=== PATIENT | female | born 1960 | race African-American/Black ===

== ENCOUNTER 2016-11-17 06:45 | Emergency (ER) | payer OTHER ==
[~2016-11-17] VITALS: Ht 162.6 cm; Wt 78.0 kg
[2016-11-17] MEDS ORDERED: Norco 10mg/325mg tab ORAL ONE (07:15)
--- NOTE | 2016-11-17 07:15 | Emergency Room Report ---
History of Present Illness General Chief Complaint: Pain Source: Patient Present Illness HPI The patient presents with 3 weeks of right knee pain. She may have twisted it. She's has swelling and pain with ambulation. She's been using Yo wrap and then wrapped elastic sleeve from [facility]. The sleeve has been helping more than the Yo wrap. The pain got worse recently. She takes [place] 10/325 for her back and has been using that. In addition she took some Advil a few days ago a couple times. The pain is 8-10/10, aching with swelling and does not radiate. The lateral side is more tender than the medial. 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 There has been clicking when she walks. He denies any cough, shortness of breath or chest pain. There is no rash in that area. There is no numbness side from the foot drop that she usually has. No fever or rash. No dysuria. Allergies: Coded Allergies: No Known Allergies (Unverified , 11/17/16) Patient History Past Medical History: see triage record Social History Narrative disabled Last Menstrual Period: 20 years ago Now: No Reviewed Nursing Documentation: PMH: Agreed, PSxH: Agreed Nursing Documentation-PMH Hx Hypertension: Yes Hx Asthma: No Hx Diabetes: No History Of Psychiatric Problem: No Review of Systems Constitutional: Denies: fever Respiratory: Reports: see HPI Cardiovascular: Reports: see HPI Gastrointestinal: Denies: nausea, vomiting Musculoskeletal: Reports: see HPI Skin: Reports: see HPI Neurological: Reports: see HPI All Other Systems: negative except mentioned in HPI Physical Exam Vital Signs Date Time Temp Pulse Resp B/P Pulse Ox O2 Delivery O2 Flow Rate FiO2 11/17/16 06:51 98.4 75 14 132/91 100 Sp02 EP Interpretation: reviewed, normal General Appearance: well appearing, no apparent distress Head: normocephalic, atraumatic Eyes: bilateral eye normal inspection ENT: hearing grossly normal, normal voice, moist mucus membranes Neck: full range of motion, supple Respiratory: no respiratory distress, speaking full sentences Cardiovascular #2: 2+ radial (L), 2+ dorsalis pedis (R) Gastrointestinal: normal inspection Musculoskeletal: digits/nails normal, no calf tenderness, swelling, other - Obvious swelling of the right knee with effusion. Range of motion is fairly good except with flexion. There is pain with full extension. There is no gross sign and also there is lateral ligament laxity. She also has meniscal tenderness bilaterally hour Apley's compression is negative. Negative drawer sign. Neurologic: alert, sensory intact, speech normal, motor weakness - foot drop right, grossly normal - except for foot drop R Psychiatric: mood/affect normal Skin: no rash Medical Decision Making Diagnostic Impression: Primary Impression: Acute cartilage injury of knee Qualified Codes: S89.91XA - Unspecified injury of right lower leg, initial encounter ER Course The patient presents with minimal traumatic right knee effusion and pain. Exam is consistent with cartilage injury however an x-ray will be obtained to exclude a fracture. Also she'll be given Motrin and [place]. Immobilizer applied by tech. Position and tension excellent with improvement. Neurovasc normal with exclusion of foot drop as checked by me. Patient stable for outpatient observation and treatment. Patient has norco at home. Other X-Ray Diagnostic Results Other X-Ray Diagnostic Results : X-Ray Ordered: R knee EP Interpretation: Yes Findings: no fractures, no dislocation, other - effusion, sl STS Number of Views: 3 Last Vital Signs Date Time Temp Pulse Resp B/P Pulse Ox O2 Delivery O2 Flow Rate FiO2 11/17/16 08:40 98.4 14 132/91 100 11/17/16 06:51 75 Status: improved Disposition: HOME, SELF-CARE Condition: Improved Scripts Ibuprofen* (MOTRIN*) 600 Mg Tablet 600 MG ORAL Q8H Y for For Pain, #20 TAB 0 Refills Prov: Ishaan Mcgraw M.D. 11/17/16 Ishaan Mcgraw M.D. Nov 17, 2016 07:15
[2016-11-17 07:17] VITALS: BP 132/91
[2016-11-17] MEDS ORDERED: IBUPROFEN600 MG ORAL (08:24)
[2016-11-17 08:39] VITALS: BP 134/89
[2016-11-17 08:40] VITALS: BP 132/91
--- NOTE | 2016-11-17 11:30 | Diagnostic Imaging Report ---
Indication: Pain 3 views of the right knee were obtained. Findings: No acute fracture, malalignment, or joint effusion are identified. There is mild joint space narrowing in the medial compartment.. Bone mineralization is within normal limits for age. Impression: Mild osteoarthritis
== END 2016-11-17 08:45 | disposition home or self-care (01) ==
LOC: EMR 07:13
DX: S89.81XA Other specified injuries of right lower leg, initial encounter (principal); X50.1XXA Overexertion from prolonged static or awkward postures, initial encounter; Y92.9 Unspecified place or not applicable; M17.11 Unilateral primary osteoarthritis, right knee; I10 Essential (primary) hypertension
CPT/HCPCS: 29530; 99283